=== PATIENT | male | born 1995 | race Caucasian/White ===

== ENCOUNTER 2017-10-14 10:33 | Emergency (ER) | payer OTHER ==
[~2017-10-14] VITALS: Ht 175.3 cm; Wt 80.0 kg
[2017-10-14 10:38] VITALS: BP 128/73; PULSE 67; RESP 15; TEMP 98.5; O2SAT 97
[2017-10-14] MEDS ORDERED: NEOM0.1S4 RIGHT EYE (11:07)
--- NOTE | 2017-10-14 11:12 | PD ---
HPI Chief Complaint: Eye Problems/Injury Time Seen by Provider: 11:02 Travel History International Travel<30 days: No Contact w/Intl Traveler<30days: No Traveled to known affect area: No History of Present Illness HPI 22-year-old [place] male currently attending [employer], presents emergency department with right eye swelling, itchiness, and drainage. Patient states yesterday it felt somewhat itchy but this morning he woke up it was more swollen and "stuck shut". He denies significant pain or visual changes. He has no headache, fever, sore throat, or other upper respiratory symptoms. He has no other acute complaints. He is allergic to Reglan. PFSH Past Medical History Hx Anticoagulant Therapy: No Cardiovascular Problems: No Chemotherapy: No Cerebrovascular Accident: No Diabetes: No Headaches: Yes Respiratory: No Immunizations Current: Yes Social History Alcohol Use: No Tobacco Use: No Substance Use: No Allergies-Medications (Allergen,Severity, Reaction): Coded Allergies: metoclopramide (Unverified Adverse Reaction, Intermediate, muscle twitching, 10/14/17) Reported Meds & Prescriptions Reported Meds & Active Scripts Active No Active Prescriptions or Reported Medications Review of Systems General / Constitutional: No: Fever Eyes: Positive: Drainage, Redness, Tearing, No: Diploplia, Blurred Vision, Photophobia, Foreign Body Sensation, Pain, Blind Spots, Visual changes, Blindness HENT: No: Headaches, Vertigo, Lightheadedness, Sore Throat, Rhinitis, Rhinorrhea, Congestion, Nosebleed, Neck Stiffness, Neck Pain, Masses, Gingival Bleeding, Dental Difficulties, Ear Discharge, Earache Cardiovascular: No: Chest Pain or Discomfort Respiratory: No: Cough, Shortness of Breath Gastrointestinal: No: Abdominal Pain Genitourinary: No: Dysuria Musculoskeletal: No: Pain Skin: No Rash Neurologic: No: Weakness Psychiatric: No: Depression Endocrine: No: Polydipsia Hematologic/Lymphatic: No: Easy Bruising Physical Exam Narrative GENERAL: Patient appears in no obvious distress per SKIN: Warm and dry. HEAD: Atraumatic. Normocephalic. EYES: Pupils equal and round. No scleral icterus. Right eye has moderate conjunctival injection. There is mild upper and lower eyelid swelling noted. There is no sign of corneal abrasion, or ulceration. Ocular motions are equal and intact bilaterally. ENT: No nasal bleeding or discharge. Mucous membranes pink and moist. Pharynx is clear. Airways patent NECK: Trachea midline. Supple and nontender per CARDIOVASCULAR: Regular rate and rhythm. RESPIRATORY: No accessory muscle use. Clear to auscultation. Breath sounds equal bilaterally. MUSCULOSKELETAL: Extremities without clubbing, cyanosis, or edema. No obvious deformities. NEUROLOGICAL: Awake and alert. No obvious cranial nerve deficits. Motor grossly within normal limits. Five out of 5 muscle strength in the arms and legs. Normal speech. PSYCHIATRIC: Appropriate mood and affect; insight and judgment normal. Data Data Last Documented VS Vital Signs Date Time Temp Pulse Resp B/P (MAP) Pulse Ox O2 Delivery O2 Flow Rate FiO2 10/14/17 10:38 98.5 67 15 128/73 (91) 97 MDM Medical Decision Making Medical Screen Exam Complete: Yes Emergency Medical Condition: Yes Differential Diagnosis Upper respiratory infection. Foreign body. Conjunctivitis Narrative Course Patient is felt to have conjunctivitis. He will be treated with neomycin/polymyxin/dexamethasone ophthalmic drops every 4 hours while awake for the next week. Patient to follow-up if symptoms do not improve Diagnosis Primary Impression: Acute conjunctivitis, right eye Qualified Codes: H10.31 - Unspecified acute conjunctivitis, right eye Patient Instructions: Conjunctivitis (ED), General Instructions Additional Instructions: Patient is felt to have conjunctivitis. He will be treated with neomycin/polymyxin/dexamethasone ophthalmic drops every 4 hours while awake for the next week. Patient to follow-up if symptoms do not improve Scripts Olkfhogs-Zndxpmzur-Hknfkwbemsaes Opth Drops (Twmcvbhu-Slmttxqkj-Lnohabpulfxrv Opth Drops) 3.5-10,000-0.1 Mg-Units-% Susp 1 DROP RIGHT EYE Q4H for Infection, #1 BOTTLE 0 Refills Prov: Chriss López MD 10/14/17 Disposition: 01 DISCHARGE HOME Condition: Stable James Hardin Oct 14, 2017 11:12
== END 2017-10-14 11:45 | disposition home or self-care (01) ==
LOC: NEPK 10:33
DX: H10.31 Unspecified acute conjunctivitis, right eye (principal)
CPT/HCPCS: 99283